=== PATIENT | male | born 1985 | race Native Hawaiian/Other Pacific Islander ===

== ENCOUNTER 2024-10-04 00:52 | Emergency (ER) | payer BC | END 2024-10-04 01:16 | disposition home or self-care (01) | LOC: FB.ED 00:52 | DX: S01.21XA Laceration without foreign body of nose, initial encounter (principal); Z79.2 Long term (current) use of antibiotics; Y04.0XXA Assault by unarmed brawl or fight, initial encounter | CPT/HCPCS: 99282; 99283 ==